=== PATIENT | female | born 1995 | race Two or more races ===

== ENCOUNTER 2020-09-23 18:07 | Emergency (ER) | payer OTHER ==
[2020-09-23 18:48] VITALS: BP 123/83; PULSE 76; TEMP 98.9; BMI 33.4
[2020-09-23 19:04] LABS: HEMOGLOBIN 12.2 GM/dl (10.7-15.3); PLATELET COUNT 322 K/MM3 (134-434)
[2020-09-23 19:11] LABS: ACTIVATED PTT 26.4 SECONDS (25.2-36.5)
[2020-09-23 19:13] LABS: BILIRUBIN,TOTAL 0.5 mg/dl (0.2-1); CALCIUM 8.9 mg/dl (8.5-10); CREATININE 0.8 mg/dl (0.55-1.3); POTASSIUM 3.7 mmol/L (3.5-5.1); TOT PROT 7.1 g/dl (6.4-8.2)
[2020-09-23 19:16] LABS: INR 1.33 (0.82-1.09); PROTHROMBIN TIME (PATIENT) 14.6 SEC (10.2-13.0)
[2020-09-23 19:25] LABS: HEMATOCRIT 36.8 % (32.4-45.2); MCHC 33.2 g/dl (32.0-36.0); MEAN CELL VOLUME 87.3 fl (80-96); MEAN PLT VOLUME 8.4 fl (7.5-11.1); RBC 4.21 M/mm3 (3.60-5.2); RDW 12.8 % (11.6-15.6); WHITE BLOOD COUNT 7.7 K/mm3 (4.0-10.8)
[2020-09-23 23:08] LABS: PLATELET ESTIMATE ADEQUATE
== END 2020-09-23 21:15 | disposition home or self-care (01) ==
LOC: FER 18:07
DX: O23.591 Infection of other part of genital tract in pregnancy, first trimester (principal); B37.3 Candidiasis of vulva and vagina; Z3A.01 Less than 8 weeks gestation of pregnancy
CPT/HCPCS: 36415; 76817-TC; 80053; 81003; 81015; 84702; 85025; 85610; 85730; 86850; 86900; 86901; 87086; 99284-25

== ENCOUNTER 2022-02-26 20:55 | Emergency (ER) | payer OTHER ==
[2022-02-26 21:20] VITALS: BP 116/67; PULSE 80; RESP 16; TEMP 98.7; BMI 37.1
[2022-02-26 23:28] LABS: EPITHELIAL CELLS FEW /hpf
[2022-02-26] MEDS ORDERED: KETOROLAC TROMETHAMINE 60 MG/2 ML VIAL IM ONE (23:43)
[2022-02-26] MEDS ORDERED: KETOROLAC TROMETHAMINE 60 MG/2 ML VIAL ONE (23:44)
== END 2022-02-26 23:48 | disposition home or self-care (01) ==
LOC: FER 20:55
PROC: 3E0233Z Introduction of Anti-inflammatory into Muscle, Percutaneous Approach (ICD-10-PCS; principal; 2022-02-26)
DX: R10.2 Pelvic and perineal pain (principal)
CPT/HCPCS: 76830-TC; 81003; 81015; 84703; 87086; 99284-25